=== PATIENT | female | born 1955 | race Caucasian/White ===

== ENCOUNTER → 2018-04-29 | Outpatient (CLI) | payer OTHER ==
--- NOTE | 2018-04-29 10:58 | MM ---
Reason for exam: screening (asymptomatic). Last mammogram was performed 5 years and 5 months ago. History: Family history of breast cancer in grandmother and breast cancer in sister at age 47. Physical Findings: A clinical breast exam by your physician is recommended on an annual basis and results should be correlated with mammographic findings. MG 3D Screening Mammo W/Cad Bilateral CC and MLO view(s) were taken. Prior study comparison: November 29, 2012, mammogram, performed at [facility]. November 17, 2011, mammogram, performed at [facility]. There are scattered fibroglandular densities. No significant changes when compared with prior studies. ASSESSMENT: Benign, BI-RAD 2 RECOMMENDATION: Routine screening mammogram of both breasts in 1 year.
== END ==
LOC: RADMAMWWP 06:50
PROVIDERS: ATTEND Family Medicine
DX: Z12.31 Encounter for screening mammogram for malignant neoplasm of breast (principal)
CPT/HCPCS: 77063; 77067

== ENCOUNTER → 2018-08-18 | Outpatient (CLI) | payer OTHER ==
--- NOTE | 2018-08-18 10:07 | CTL ---
EXAMINATION TYPE: CT Low Dose Lung DATE OF EXAM ORDERED: 08/18/2018 HISTORY: . Lung cancer screening CT DLP: 117.[address] CTDI: 3.6 mGy Automated exposure control for dose reduction was used. SCREENING VISIT: Initial COMPARISON: None TECHNIQUE: Low dose computed tomography scan was performed through the chest at 1 mm thick sections a nd reconstructed images in the coronal plane at [address] DIAGNOSTIC QUALITY: Satisfactory FINDINGS: LUNG NODULES: None. LUNGS: COPD: Severity: None Fibrosis: Severity: None Lymph nodes: None Other findings: None RIGHT PLEURAL SPACE: Effusion: None Calcification: None Thickening: None Pneumothorax: None LEFT PLEURAL SPACE: Effusion: None Calcification: None Thickening: None Pneumothorax: None HEART: Heart Size: Normal Coronary calcification: Mild Pericardial effusion: None OTHER FINDINGS: Upper abdomen: Normal Bony thorax: Normal Supraclavicular region: Normal Other: Ascending thoracic aorta at the level the main pulmonary artery is 3.3 cm. The main pulmonary artery the bifurcation is 2.6 cm. IMPRESSION: 1. No suspicious chest CT findings. FOLLOW UP CT CHEST RECOMMENDATION: Low dose screening CT per protocol, follow-up in one year CT LUNG RAD: Lung rad 1
== END | disposition home or self-care (01) ==
LOC: RADCTMAIN 07:04
PROVIDERS: ATTEND Family Medicine
DX: Z12.2 Encounter for screening for malignant neoplasm of respiratory organs (principal); Z87.891 Personal history of nicotine dependence

== ENCOUNTER 2018-09-09 09:18 | Day surgery (SDC) | payer OTHER ==
[2018-09-07 11:42] VITALS: BMI 37.1
[~2018-09-09 09:18] MED LIST: LACTATED RINGERS 1,000 ML IV SCH; LIDOCAINE 1% 20 ML VIAL (10MG/ML) FOR IV START INTRADERMA PRN
[2018-09-09 09:37] VITALS: RESP 16; TEMP 98.7
[2018-09-09] MEDS ORDERED: PROPOFOL 10 MG/ML 20 ML VIAL IV ONE (10:25)
--- NOTE | 2018-09-09 11:02 | P.PCN ---
Date of Procedure: 09/09/18 Description of Procedure: BRIEF HISTORY: 62-year-old female with a prior history of colon polyps who presents to the outpatient setting for colonoscopy. The patient reports last colonoscopy was approximately 6 years ago. She denies any change in bowel habits, abdominal pain, diarrhea, constipation or other any blood per rectum. She denies any family history of colon cancer. PROCEDURE PERFORMED: Colonoscopy. PREOPERATIVE DIAGNOSIS: High risk colon cancer screening, personal history of colon polyps. ESTIMATED BLOOD LOSS: Minimal. IV sedation per Anesthesia. PROCEDURE: After informed consent was obtained, the patient, was brought into the endoscopy unit. IV sedation was administered by Anesthesia under continuous monitoring. Digital rectal examination was normal. Initially the Olympus CF-190 flexible video colonoscope was then inserted in the rectum, gradually advanced into the cecum without any difficulty. The terminal ileum was intubated and appeared normal. Retroflexion in the cecum did not reveal any polyps. Careful examination was performed as the scope was gradually being withdrawn. Ileocecal valve and the appendiceal orifice were visualized and appeared normal. Prep was excellent. Mucosa of the cecum, ascending colon, transverse colon, descending colon, sigmoid colon, and rectum appeared normal. Mild scattered diverticulosis in the sigmoid colon. Mild internal hemorrhoids. Retroflexion was performed in the rectum and no lesions were seen. The patient tolerated the procedure well. IMPRESSION: Normal-appearing colon from rectum to cecum, and normal-appearing terminal ileum. Mild diverticulosis. Mild internal hemorrhoids. RECOMMENDATIONS: Findings of this examination were discussed with the patient interferon. Okay to resume high-fiber diet. Given prior history of colon polyps would recommend repeat screening colonoscopy in 5 years.
[2018-09-09 11:24] VITALS: BP 120/80; PULSE 63
== END 2018-09-09 11:36 | disposition home or self-care (01) ==
LOC: ORWHC2ENDO 09:18
PROVIDERS: ATTEND Internal Medicine
DX: Z12.11 Encounter for screening for malignant neoplasm of colon (principal); K57.90 Diverticulosis of intestine, part unspecified, without perforation or abscess without bleeding; K64.8 Other hemorrhoids; Z86.010 Personal history of colon polyps; Z90.710 Acquired absence of both cervix and uterus; I25.2 Old myocardial infarction; I10 Essential (primary) hypertension; E78.5 Hyperlipidemia, unspecified; Z87.891 Personal history of nicotine dependence; R06.02 Shortness of breath; Z79.82 Long term (current) use of aspirin; Z79.899 Other long term (current) drug therapy
CPT/HCPCS: J2704; G0105

== ENCOUNTER → 2019-05-24 | Outpatient (CLI) | payer OTHER ==
--- NOTE | 2019-05-24 08:50 | US ---
EXAMINATION TYPE: US duplex aorta DATE OF EXAM: 05/24/2019 COMPARISON: NONE CLINICAL HISTORY: Z82.49 FAM HX OF ISCHEMIC HEART DISEASE. Family history of AAA. No symptoms EXAM MEASUREMENTS: Abdominal Aorta: Proximal: 2.5 x 2.5 x 2.6 cm Mid: 1.9 x 2.0 x 2.3 cm Distal: 3.8 x 3.5 x 3.9 cm Bifurcation: RT: 1.0 x 1.5 x 1.4 cm LT: 1.5 x 1.2 x 1.3 cm Proximal portion of aorta is ectatic. Aneurysm distal aorta measuring 3.9 cm. Bilateral iliacs are me asuring upper limits of normal IMPRESSION: 1. Abdominal aortic fusiform prominence with a maximum AP diameter of 3.8 cm. This terminates bifurca tion.
== END | disposition home or self-care (01) ==
LOC: RADUSWWP 06:49
PROVIDERS: ATTEND Family Medicine
DX: I71.4 Abdominal aortic aneurysm, without rupture (principal); Z82.49 Family history of ischemic heart disease and other diseases of the circulatory system
CPT/HCPCS: 93979

== ENCOUNTER → 2021-09-12 | Outpatient (CLI) | payer OTHER ==
--- NOTE | 2021-09-13 09:55 | MR ---
EXAMINATION TYPE: MR brain wo/w con DATE OF EXAM: 09/12/2021 COMPARISON: Outside brain MRI November 18, 2019 HISTORY: Benign neoplasm of cerebral meninges TECHNIQUE: Multiplanar, multisequence images of the brain and brainstem is performed without and with IV contras t, utilizing 11 mL intravenous Gadavist . FINDINGS: Diffusion weighted images demonstrate no evidence of a recent infarct or other diffusion ab normality. There is no extra-axial fluid collection or significant white matter signal abnormality. The ventricular system and cisternal spaces are normal in size and appearance. The brain volume is age appropriate. Midline structures redemonstrate empty sella morphology. The craniocervical junction appears within normal limits. Stable 7 x 7 mm homogeneous enhancing left sided meningioma along the anterior interhe mispheric fissure axial image 20 and slightly large 10 x 7 mm meningioma posteriorly axial image 23 a long the interhemispheric fissure left occipital lobe. No new enhancing masses. The dural venous sinu ses remain patent. The visualized sinuses are clear and the globes are intact. IMPRESSION: There are 2 small stable midline meningiomas redemonstrated. No new or enlarging enhancin g masses identified.
== END | disposition home or self-care (01) ==
LOC: RADMRIMAIN 09:16
PROVIDERS: ATTEND Neurological Surgery
DX: D32.0 Benign neoplasm of cerebral meninges (principal)
CPT/HCPCS: 70553; A9585

== ENCOUNTER → 2022-07-24 | Outpatient (CLI) | payer MEDICARE ==
--- NOTE | 2022-07-24 08:26 | CTL ---
EXAMINATION TYPE: CT Low Dose Lung DATE OF EXAM: 07/24/2022 8:09 AM CLINICAL INDICATION:Female, 66 years old with history of Z87.891 Personal History Nicotine Dependence ; history of tobacco use. COMPARISON: 08/18/2018 TECHNIQUE: Multiple axial non-contrast scans were obtained from approximately the lung apices through the upper abdomen. Coronal and sagittal reformatted images were obtained. Low dose technique was uti lized. CT DLP: 129 mGycm, Automated exposure control for dose reduction was used. CT Contrast: Contrast used: None Oral contrast used: None FINDINGS: ======== Lack of intravenous contrast and low dose technique limits the evaluation of the vascular and soft ti ssue structures. LUNGS: No evidence of pulmonary fibrosis. No evidence of focal consolidation, pneumothorax or pleural effusion. Mild centrilobular emphysema changes. Nodules: RUL: None. RML: Intrafissural lymph node series 3 image 160. RLL: None. [place]: 4 mm pulmonary nodule series 5 image 23 LLL: Intrafissural lymph node series 3 image 152. AIRWAY: Patent and unremarkable. HEART: Size within normal limits. MEDIASTINUM: No gross evidence of adenopathy. VASCULATURE: No aortic aneurysm. Mild atherosclerosis of the arterial vasculature. MUSCULOSKELETAL: No acute osseous abnormalities SOFT TISSUES/LYMPH NODES: Unremarkable. LOWER NECK: No significant findings. UPPER ABDOMEN: No significant findings. IMPRESSION: 1. No clinically significant pulmonary nodules. 2. Mild emphysema. CT LUNG RAD AND CT CHEST RECOMMENDATION: Lung-Rad 2 Benign Appearance or Behavior: Continue annual sc reening with LDCT in 12 months. S Modifier (other clinically significant findings): None Recommend smoking cessation (if current smoker), or continuation of smoking cessation (if prior smoke r). Annual screening for lung cancer with low-dose computed tomography is recommended in adults ages 55 to 77 years who have a 30 pack-year smoking history and currently smoke or have quit within the pa st 15 years. Screening should be discontinued once a person has not smoked for 15 years or develops a health problem that substantially limits life expectancy or the ability or willingness to have curat shayy lung surgery. Lung rads 2021 [email or web address]
== END | disposition home or self-care (01) ==
LOC: RADCTMAIN 07:42
PROVIDERS: ATTEND Family Medicine
DX: Z12.2 Encounter for screening for malignant neoplasm of respiratory organs (principal); J43.2 Centrilobular emphysema; F17.200 Nicotine dependence, unspecified, uncomplicated
CPT/HCPCS: 71271

== ENCOUNTER → 2022-08-27 | Outpatient (CLI) | payer MEDICARE ==
--- NOTE | 2022-08-27 09:55 | US ---
EXAMINATION TYPE: US extremity nonvasc mass LT DATE OF EXAM: 08/27/2022 COMPARISON: NONE CLINICAL INDICATION: Female, 66 years old with history of R22.32 LOCALIZED SWELLING, MASS AND LUMP, L EFT UPP; Left proximal anterior upper arm palpable, feels soft to touch. Doctor noticed during an ex am. TECHNIQUE: Multiple grayscale and color Doppler ultrasound images of the left proximal upper arm at palpable area per obtained. FINDINGS/IMPRESSION: Area of concern scanned. Focal nonvascular hypoechoic area seen = 4.1 x 3.1 x 1.3 cm. This is heterogenous appearance. Contralateral image taken show no abnormality. Overall non vascular hypoechoic area is indeterminate. Further evaluation with MRI humerus with and without IV co ntrast is recommended.
== END | disposition home or self-care (01) ==
LOC: RADUSWWP 09:18
PROVIDERS: ATTEND Family Medicine
DX: R22.32 Localized swelling, mass and lump, left upper limb (principal)

== ENCOUNTER → 2022-10-22 | Outpatient (CLI) | payer MEDICARE ==
--- NOTE | 2022-10-23 11:45 | MR ---
EXAMINATION TYPE: MR humerus LT wo/w con DATE OF EXAM: 10/22/2022 COMPARISON: Ultrasound 08/27/2022 HISTORY: Lump on lateral proximal humerus. CONTRAST: Standard multiplanar, multisequence MRI departmental protocol images were obtained without contrast a nd with 11 mL intravenous Gadavist gadolinium contrast. FINDINGS: Over the area of palpable abnormality of the left upper extremity adjacent to the lateral lumbar shu stephany there is a fat measuring 3.6 x 2.2 x 4.9 cm mass. There is fat suppression. There is no evidence of enhancement. Minimal internal stranding signal. Osseous structures maintain normal signal pattern with no evidence of marrow edema. There is no perio steal reaction. No acute fracture or dislocation biceps tendon grossly contained within the bicipital groove. IMPRESSION: 3.6 x 2.2 x 4.9 cm mass is most compatible with a benign lipoma. If there is been interval growth or the probable benign lipoma has been demonstrating growth over time then a atypical lipoma or less lik rohini remote low-grade liposarcoma would be in the differential diagnosis.
== END | disposition home or self-care (01) ==
LOC: RADMRIMAIN 08:18
PROVIDERS: ATTEND Family Medicine
DX: M89.8X4 Other specified disorders of bone, hand (principal)
CPT/HCPCS: 73220; A9585

== ENCOUNTER → 2022-12-04 | Outpatient (CLI) | payer MEDICARE ==
[2022-12-04 14:18] LABS: African American GFR (CKD) >90 (>60 ml/min/1.73 sqM); Blood Urea Nitrogen 21 mg/dL (7-17); Non-African American GFR(CKD) >90 (>60 ml/min/1.73 sqM)
--- NOTE | 2022-12-04 15:55 | CT ---
EXAMINATION TYPE: CT angio abdomen pelvis CT DLP: 1823.9 mGycm, Automated exposure control for dose reduction was used. DATE OF EXAM: 12/04/2022 3:29 PM COMPARISON: . None CLINICAL INDICATION:Female, 66 years old with history of I71.43 INFRARENAL ABDOMINAL AORTIC ANEURYSM, abd aortic aneurysm TECHNIQUE: Multiple thin slice sub-millimeter images were obtained after administration of contrast. 3-D reconstructed images and maximum intensity projection images were obtained. CT angio abdomen pel vis CT Contrast: Contrast used:100 mL of Isovue 370 with IV Contrast, Oral contrast used: without Oral Contrast None FINDINGS: CTA Abdomen and pelvis: No evidence for intramural hematoma on noncontrast imaging. There is infraren al abdominal aneurysm fusiform dilation up to 5.0 x 4.9 cm and extending approximately 6.8 cm in caud ocranial length.. There is minimal mural thrombus around the aneurysm. Atherosclerotic plaquing is i dentified within the abdominal aorta. The origins of the superior mesenteric artery, renal arteries, inferior mesenteric artery, and celiac axis are patent. The iliac vessels are normal in morphology there is atherosclerotic plaque is predominantly calcified involving the external iliac and common il iac arteries. No significant luminal narrowing of the iliac systems bilaterally. LOWER CHEST: No evidence of focal consolidation, pneumothorax or pleural effusion. Atelectasis change s in the lung bases on the right. LIVER: Unremarkable GALLBLADDER AND BILE DUCTS: Unremarkable. PANCREAS: Unremarkable. SPLEEN: Unremarkable. ADRENAL GLANDS: Unremarkable. KIDNEYS AND URETERS: No evidence of hydronephrosis or renal calculus. The ureters are unremarkable. PELVIS BLADDER: Unremarkable REPRODUCTIVE: Unremarkable. ABDOMEN & PELVIS STOMACH AND BOWEL: No evidence of bowel obstruction. Scattered colonic diverticulosis. PERITONEUM: No evidence of pneumoperitoneum or free fluid. VASCULATURE: No evidence of aortic aneurysm. MUSCULOSKELETAL: Mild disc degeneration changes are present throughout the thoracolumbar spine. LYMPH NODES: Abnormal soft tissue density which is lobulated in the mesentery adjacent to the sigmoid colon measuring 3.3 x 2.2 cm. SOFT TISSUE/ABDOMINAL WALL: Fat-containing inguinal hernia. IMPRESSION 1. Infrarenal fusiform dilation up to 5.0 cm. Vascular surgical consultation recommended. 2. Abnormal soft tissue within the mesentery measuring 3.2 x 2.3 cm adjacent to the sigmoid colon. E tiology is unclear could relate to prior surgical change versus lymphadenopathy from neoplastic proce ss. Further workup and comparisons with any priors at outside institution may be of benefit. 3. No evidence of vascular occlusion. 4. Atherosclerotic disease involving abdominal aorta and lower extremity vasculature. 5. Colonic diverticulosis 6. Left fat-containing inguinal hernia.
== END | disposition home or self-care (01) ==
LOC: RADCTMAIN 13:32
PROVIDERS: ATTEND Surgery
DX: I71.43 Infrarenal abdominal aortic aneurysm, without rupture (principal); K57.30 Diverticulosis of large intestine without perforation or abscess without bleeding; K40.90 Unilateral inguinal hernia, without obstruction or gangrene, not specified as recurrent; I70.0 Atherosclerosis of aorta
CPT/HCPCS: 82565; 84520; 36415; 74174; Q9967

== ENCOUNTER 2023-01-26 10:12 | Inpatient (IN) | payer MEDICARE ==
[~2023-01-26 10:12] MED LIST changes: +DEXAMETHASONE SOD PHOSPHATE 4 MG/ML 1 ML VIAL IV ONE; -LACTATED RINGERS 1,000 ML IV SCH; -LIDOCAINE 1% 20 ML VIAL (10MG/ML) FOR IV START INTRADERMA PRN; +ONDANSETRON 4 MG/2 ML VIAL IVP ONE; +SODIUM CHLORIDE 0.9% 1,000 ML in EMPTY BAG 1 BAG IV ONE; +ceFAZolin 1 GM in SODIUM CHLORIDE 0.9% 250 ML IRRIGATION PRN
[2023-01-26 11:01] LABS: Basophils % (A) 0 %; Eosinophils # (A) 0.1 k/uL (0-0.7); Eosinophils % (A) 1 %; HCT 50.7 % (34.0-46.0); HGB 17.5 gm/dL (11.4-16.0); Lymphocytes # (A) 1.4 k/uL (1.0-4.8); Lymphocytes % (A) 15 %; MCH 30.9 pg (25.0-35.0); MCHC 34.5 g/dL (31.0-37.0); MCV 89.7 fL (80.0-100.0); Monocytes # (A) 0.4 k/uL (0-1.0); Monocytes % (A) 4 %; Neutrophils % (A) 78 %; Platelet Count 382 k/uL (150-450); RBC 5.66 m/uL (3.80-5.40)
[2023-01-26 11:20] LABS: African American GFR (CKD) >90 (>60 ml/min/1.73 sqM); Anion Gap 10 mmol/L; Blood Urea Nitrogen 15 mg/dL (7-17); Calcium 9.7 mg/dL (8.4-10.2); Carbon Dioxide 27 mmol/L (22-30); Chloride 103 mmol/L (98-107); Glucose 101 mg/dL (74-99); Non-African American GFR(CKD) >90 (>60 ml/min/1.73 sqM); Potassium 4.3 mmol/L (3.5-5.1); Sodium 140 mmol/L (137-145)
[2023-01-26] MEDS ORDERED: SUCCINYLCHOLINE CHLORIDE 200 MG/10 ML VIAL IV ONE (12:27)
[2023-01-26] MEDS ORDERED: fentaNYL (PF) 50 MCG/ML 2 ML AMP ONE (12:27)
[2023-01-26] MEDS ORDERED: MIDAZOLAM 2 MG/2 ML VIAL ONE (12:27)
[2023-01-26] MEDS ORDERED: PROPOFOL 10 MG/ML 20 ML VIAL IV ONE (12:27)
[2023-01-26] MEDS ORDERED: LIDOCAINE 1% INJ 10MG/ML (20 ML MDV) ONE (12:27)
[2023-01-26] MEDS ORDERED: PHENYLEPHRINE 10 MG/ML 5 ML VIAL ONE (12:27)
[2023-01-26] MEDS ORDERED: NEOSTIGMINE 1 MG/ML 10 ML VIAL ONE (12:27)
[2023-01-26] MEDS ORDERED: PROTAMINE SULFATE 10 MG/ML 5 ML VIAL ONE (12:27)
[2023-01-26] MEDS ORDERED: GLYCOPYRROLATE 0.2 MG/ML 2 ML VIAL ONE (12:27)
[2023-01-26] MEDS ORDERED: ePHEDrine 50 MG/ML 1 ML VIAL ONE (12:27)
[2023-01-26] MEDS ORDERED: HEPARIN SODIUM,PORCINE 10,000 UNIT/ML 1 ML VIAL ONE (12:27)
[2023-01-26] MEDS ORDERED: ROCURONIUM 10 MG/ML (5 ML VIAL) IV ONE (12:27)
[2023-01-26] MEDS ORDERED: IOPAMIDOL-250 100ML BTL INTRAARTER ONE (14:23)
[2023-01-26] MEDS ORDERED: LACTATED RINGERS 1,000 ML IV ONE (14:47)
[2023-01-26] MEDS ORDERED: NALOXONE 0.4 MG/ML 1 ML VIAL IVP PRN (14:48)
--- NOTE | 2023-01-26 14:56 | IR ---
EXAMINATION TYPE: IR stent intravas non coronary DATE OF EXAM: 01/26/2023 COMPARISON: NONE HISTORY: Fluoroscopy time. Fluoroscopy was provided to the referring clinician.
[2023-01-26 15:27] LABS: Basophils % (A) 0 %; Eosinophils # (A) 0.2 k/uL (0-0.7); Eosinophils % (A) 2 %; HCT 44.9 % (34.0-46.0); HGB 15.5 gm/dL (11.4-16.0); Lymphocytes # (A) 1.4 k/uL (1.0-4.8); Lymphocytes % (A) 14 %; MCH 30.9 pg (25.0-35.0); MCHC 34.5 g/dL (31.0-37.0); MCV 89.6 fL (80.0-100.0); Monocytes # (A) 0.5 k/uL (0-1.0); Monocytes % (A) 5 %; Neutrophils # (A) 7.5 k/uL (1.3-7.7); Neutrophils % (A) 77 %; Platelet Count 334 k/uL (150-450); RBC 5.01 m/uL (3.80-5.40); WBC 9.8 k/uL (3.8-10.6)
[2023-01-26 15:35] LABS: Glucose,Whole Blood 102 mg/dL (70-110)
[2023-01-26] MEDS: HYDROmorphone 0.5 MG/0.5 ML SYRINGE IVP PRN ×2 (15:37→16:07)
[2023-01-26 15:48] LABS: African American GFR (CKD) >90 (>60 ml/min/1.73 sqM); Anion Gap 10 mmol/L; Blood Urea Nitrogen 13 mg/dL (7-17); Calcium 8.4 mg/dL (8.4-10.2); Carbon Dioxide 25 mmol/L (22-30); Chloride 105 mmol/L (98-107); Glucose 99 mg/dL (74-99); Non-African American GFR(CKD) >90 (>60 ml/min/1.73 sqM); Potassium 3.8 mmol/L (3.5-5.1); Sodium 140 mmol/L (137-145)
--- NOTE | 2023-01-26 15:57 | P.OP ---
Date of Procedure: 01/26/23 Preoperative Diagnosis: 5.2 cm infrarenal abdominal aortic aneurysm. Postoperative Diagnosis: Same. Procedure(s) Performed: 1: Percutaneous ultrasound-guided cannulation of bilateral femoral arteries with placement of a closure device bilaterally. 2: Placement of aortoiliac bifurcated stent graft, ([place] Excluder). Anesthesia: JINAA Surgeon: Ed Dominguez Estimated Blood Loss (ml): 150 Urine output (ml): 550 Pathology: none sent Condition: stable Disposition: PACU Indications for Procedure: Patient is a 67 show female who has been followed in reference to a known infrarenal abdominal aortic aneurysm. This aneurysm recently was measured at 5.2 cm in greatest transverse diameter. She was evaluated for both stent graft and open repair. Patient was deemed a candidate for stent graft repair as well as an open repair and the patient was to proceed with stent graft repair. The procedure, risk and benefits were discussed. All questions were answered to patient's satisfaction. Description of procedure and findings: Patient was brought to special procedure suite. She is placed in the supine position and administered general endotracheal anesthesia delivered by the department anesthesiology. Patient received intravenously administered prophylactic antibiotics in the perioperative phase. Wallace catheter was placed to gravity drainage. The lower thorax, abdominal, pelvic and anterior thigh areas were sterilely prepped and draped in usual manner. Utilizing ultrasound the right common femoral artery was identified. Micropuncture needle was utilized to cannulate the artery with ultrasound guidance. Micropuncture wire was advanced and the needle was withdrawn. Micropuncture sheath and dilator advanced over the guidewire. The guidewire and dilator were withdrawn and a 0.035 inch guidewire was advanced through the micropuncture sheath. The sheath was then withdrawn and a 6-Bhut[place] sheath was advanced over the guidewire. Guidewire was withdrawn and a glide wire was then advanced into the abdominal aortic segment. Two Pro Buena devices were then deployed in the 6-[place]hutanese sheath was replaced. Similar procedures performed on the contralateral side. Lunderquist wire was advanced from the right femoral sheath and positioned at the aortic knob. Glidewire and pigtail catheter combination were advanced from the left and positioned at the L1 interspace. A [place] excluder endoprosthesis measuring 26 mm x 14.5 millimeters x 12 cm was selected. A 16-Bhutanese sheath was exchanged for the 6-Bhutanese sheath in the right groin. The patient was systemically heparinized and ACT is were drawn assuring adequate anticoagulation. Angiogram was performed and the renal artery orifices were noted. The endoprosthesis was advanced through the sheath and subsequently deployed just below the main renal artery bilaterally. From the left the pigtail catheter was withdrawn and a angled glide catheter and guidewire combinations were utilized to cannulate the gait. Once cannulated the Glidewire and catheter were advanced into the suprarenal segment. The Glidewire was exchanged for a Lunderquist wire. Pigtail catheter was readvanced over the Lunderquist. Left iliac angiogram was performed with notation of the bifurcation of the common into the internal and external segments. A [place] excluder contralateral limb measuring 14.5 mm x 12 cm was selected and deployed appropriately. From the right side the pigtail catheter was readvanced and a right iliac angiogram was performed noting the bifurcation. A [place] excluder ipsilateral limb was selected measuring 14.5 mm x 10 cm and deployed. Subsequently a conforming balloon was applied to the proximal and distal landing points as well as endoprosthetic overlap. There appeared to be less than full expansion of the right iliac limb and an area of stenosis of the proximal common iliac artery. As such utilizing the kissing balloon technique 12 mm balloon dilation catheters were utilized to balloon this segment. Subsequently completion angiogram was performed which demonstrated no evidence of a type I or type III endoleak. There appeared to be a small type II endoleak from a lumbar artery on the left. It was anticipated that this will would be able to seal on its own. With the above findings noted the sheath on the right was removed and the puncture wound closed with the previously placed Pro glide sutures. Once adequate hemostasis was achieved a similar procedure was performed on the contralateral side. The patient did receive 25 mg of protamine to reverse the heparin effect. Patient tolerated procedure well. Proper dressings were applied to both ingu inal areas. Patient had palpable posterior tibial pulse bilaterally and a dorsalis pedis pulse present on the left, consistent with preoperative examination. Total fluoroscopy time: 12.7 minutes. Total contrast volume: 75 ML's of Isovue. Description of Procedure: Please see above
[2023-01-26] MEDS: LACTATED RINGERS 1,000 ML IV SCH (17:21)
[2023-01-26] MEDS ORDERED: ALBUTEROL NEBULIZED 2.5 MG/3 ML INHALATION PRN (19:38)
[2023-01-26] MEDS: ONDANSETRON 4 MG/2 ML VIAL IVP PRN (20:00)
[2023-01-26] MEDS ORDERED: ATORVASTATIN 10 MG TAB PO SCH (21:00)
[2023-01-26] MEDS: SYMBICORT 80-4.5 MCG INHALER INHALATION SCH (21:08)
[2023-01-26] MEDS: IPRATROPIUM 0.5 MG/2.5 ML NEBU INHALATION SCH (21:09)
[2023-01-27 00:49] VITALS: RESP 16
[2023-01-27] MEDS: ONDANSETRON 4 MG/2 ML VIAL IVP PRN (03:05)
[2023-01-27] MEDS: LACTATED RINGERS 1,000 ML IV SCH (06:30)
[2023-01-27 08:11] VITALS: PULSE 71
[2023-01-27] MEDS: IPRATROPIUM 0.5 MG/2.5 ML NEBU INHALATION SCH ×2 (08:23→11:55)
[2023-01-27] MEDS: SYMBICORT 80-4.5 MCG INHALER INHALATION SCH (08:24)
[2023-01-27 08:37] LABS: HCT 45.3 % (34.0-46.0); HGB 15.3 gm/dL (11.4-16.0); MCH 31.2 pg (25.0-35.0); MCHC 33.7 g/dL (31.0-37.0); MCV 92.4 fL (80.0-100.0); Platelet Count 319 k/uL (150-450); RDW 12.1 % (11.5-15.5); WBC 12.4 k/uL (3.8-10.6)
[2023-01-27 08:50] LABS: ALT 20 U/L (4-34); AST 29 U/L (14-36); African American GFR (CKD) >90 (>60 ml/min/1.73 sqM); Albumin 4.1 g/dL (3.5-5.0); Alkaline Phosphatase 74 U/L (38-126); Anion Gap 14 mmol/L; Blood Urea Nitrogen 13 mg/dL (7-17); Carbon Dioxide 26 mmol/L (22-30); Chloride 101 mmol/L (98-107); Glucose 109 mg/dL (74-99); Magnesium 1.8 mg/dL (1.6-2.3); Non-African American GFR(CKD) >90 (>60 ml/min/1.73 sqM); Potassium 3.8 mmol/L (3.5-5.1); Sodium 141 mmol/L (137-145); Total Bilirubin 1.2 mg/dL (0.2-1.3); Total Protein 6.9 g/dL (6.3-8.2)
[2023-01-27] MEDS ORDERED: CALCIUM CARB-VIT D 500 MG-5 MCG TAB PO SCH (09:00)
[2023-01-27] MEDS ORDERED: LISINOPRIL-HCTZ 10-12.5 MG 1 EACH TAB PO SCH (09:00)
[2023-01-27] MEDS ORDERED: NON FORMULARY DRUG (Rosuvastatin Calcium [Crestor] 5 MG Tablet) PO SCH (09:00)
[2023-01-27] MEDS ORDERED: CLOPIDOGREL 75 MG TAB PO SCH (10:15)
--- NOTE | 2023-01-27 10:47 | P.DS ---
Providers Date of admission: 01/26/23 10:12 Expected date of discharge: 01/27/23 Attending physician: Ed Dominguez DO Consults: 01/26/23 06:03 Consult to Anesthesia Routine Consulting Provider: Anesthesia,Services Consult Reason/Comments: General anesthesia for Aortic Stent procedure 01/27/23 07:20 Consult Physician Routine Consulting Provider: Alona Grimaldo Consult Reason/Comments: medical mgt Do you want consulting provider notified?: Already Contacted Primary care physician: [facility] Course: 67-year-old female with a past medical history including hypertension, hyperlipidemia former smoker now currently taping, COPD, venous insufficiency and 5.2 cm infrarenal abdominal aortic aneurysm who presented yesterday for elective repair of abdominal aortic aneurysm. She is postop day #1 for percutaneous aorto iliac bifurcated stent graft placement. She had bilateral femoral arteries cannulated with placement of closure device bilaterally. She was seen and examined this morning sitting up at the site of the bed. She had been up and ambulating. She denies any shortness of breath, chest pain, abdominal pain, nausea or vomiting. She is afebrile. No reported bleeding from her groins. No pain in her lower extremities. She is tolerating her diet. She was requiring 2-4 L of nasal cannula throughout the night maintaining a 92-94% oxygen. Patient denies wearing oxygen at home. Will continue to have her ambulate and evaluated for possible home O2. Will begin Plavix 75 mg daily. First dose today. Plan for discharge this afternoon. Patient will require home oxygen therapy. Primary medical team has set this up for the patient upon discharge. Patient may be discharged home today if home oxygen is set up and available per patient today. Exam General appearance: The patient is alert, oriented, appears in no acute distress. HET: Head is normocephalic and atraumatic. Pupils are equal and reactive. Neck: Supple. Heart: Regular. Lungs: Equal expansion, normal respiratory effort. Abdomen: Soft, nontender, nondistended. Extremities: Normal skin color and turgor. Bilateral femoral groin access site without any bleeding or noted hematoma. Bilateral palpable DP pulses. Neurological: No focal deficits. Strength and sensation are grossly intact. Assessment 1. Postop day #1 for percutaneous aorto iliac bifurcated stent graft placement with bilateral femoral closure device 2. 5.2 cm infrarenal abdominal aortic aneurysm 3. COPD, requiring home oxygen therapy 4. Hypertension 5. Hyperlipidemia 6. Former smoker, now currently vaping Plan 1. Nursing to monitor oxygen while ambulating determine if home oxygen as needed 2. Will start patient on Plavix 75 mg daily 3. Discussed with patient importance of smoking cessation, vaping cessation. Patient offered nicotine patch however she declined 4. Plan for discharge home this afternoon 5. Discharge instructions reviewed with patient. See discharge summary. 6. Patient to follow-up with Dr. Portillo in 1-2 weeks. The impression and plan of care has been dictated as directed. I performed a history and examination of this patient, discussed the same with the dictator. I agree with the dictator's note ,documented as a scribe. Any additional findings or plans will be noted. Procedures: 1: Percutaneous ultrasound-guided cannulation of bilateral femoral arteries with placement of a closure device bilaterally. 2: Placement of aortoiliac bifurcated stent graft, ([place] Excluder). Patient Condition at Discharge: Stable Plan - Discharge Summary Discharge Rx Participant: No New Discharge Prescriptions: New RX: Clopidogrel [Plavix] 75 mg PO DAILY #30 tab Continue RX: Aspirin [Adult Low Dose Aspirin EC] 81 mg PO DAILY RX: Lisinopril-Hctz 10-12.5 mg [Zestoretic 10-12.5] 1 tab PO DAILY RX: Rosuvastatin Calcium [Crestor] 5 mg PO DAILY RX: Calcium Carbonate/Vitamin D3 [Calcium 600-Vit D3 20 Mcg (800 Iu)] 1 each PO DAILY RX: Albuterol Sulfate [Proair Hfa] 1 - 2 puff INHALATION Q6HR PRN PRN Reason: Shortness Of Breath Trelegy(Unk) 1 puff INHALATION DIRECTED Discharge Medication List RX: Albuterol Sulfate [Proair Hfa] 1 - 2 puff INHALATION Q6HR PRN 09/07/18 [History] RX: Aspirin [Adult Low Dose Aspirin EC] 81 mg PO DAILY 09/07/18 [History] RX: Calcium Carbonate/Vitamin D3 [Calcium 600-Vit D3 20 Mcg (800 Iu)] 1 each PO DAILY 09/07/18 [History] RX: Lisinopril-Hctz 10-12.5 mg [Zestoretic 10-12.5] 1 tab PO DAILY 09/07/18 [History] RX: Rosuvastatin Calcium [Crestor] 5 mg PO DAILY 09/07/18 [History] Trelegy(Unk) 1 puff INHALATION DIRECTED 01/22/23 [History] RX: Clopidogrel [Plavix] 75 mg PO DAILY #30 tab 01/27/23 [Rx] Follow up Appointment(s)/Referral(s): Ed Dominguez DO [Doctor of Osteopathic Medicine] - 1 Week Brown Rodriguze MD [Primary Care Provider] - 1 Week Activity/Diet/Wound Care/Special Instructions: No driving until cleared by vascular surgeon Avoid heavy lifting greater than 10 lbs , pushing, pulling, straining, flights of stairs for 7 days ok to shower tomorrow but no baths, pools, soaking in tubs for 2 weeks to avoid risk of infection. signs of infection ie: fever, rash, drainage from puncture site, swelling contact doctor or return to ER immediately. Heavy bleeding from puncture site apply firm direct pressure and return to ER. Do not attempt to drive self. low sodium/low fat diet Recommend Smoking/vaping cessation Discharge Disposition: HOME SELF-CARE
[2023-01-27 11:56] VITALS: BP 149/75; TEMP 97.8
--- NOTE | 2023-01-27 12:16 | P.CONS ---
History of Present Illness - Reason for Consult Consult date: 01/27/23 Medical Management Requesting physician: Ed Dominguez - History of Present Illness History of Presenting Illness: Patient is a Patient is a very pleasant 67-year-old female with a past medical history of COPD/emphysema, hypertension, hyperlipidemia, and abdominal aortic aneurysm. She is currently admitted to vascular surgery team status post a percutaneous ultrasound-guided cannulation of bilateral femoral arteries with placement of closure device and aortoiliac bifurcated stent graft secondary to 5.2 cm infrarenal abdominal aortic aneurysm. Surgical procedure was performed by Dr. Dominguez on 01/26/23. On the morning of 01/27/23 with a notified of consultation for medical management throughout remainder of pts hospitalization and medical clearance for discharge. Patient seen and fully evaluated at bedside. Patient appears to be doing well. She does have exertional dyspnea. Ambulatory home oxygen evaluation was completed. Patient 94% on room air at rest and quickly desats down to 84% on room air with minimal exertion/ambulation. Patient was found to require 4 L O2 via nasal cannula to maintain SpO2 of 92% with ambulation/exertion and was 97% on 4 L O2 at rest. Discussed these findings with residential case manager/social work as patient will require home oxygen for her advanced COPD/emphysema. Review of systems: Pertinent positives and negatives as discussed in HPI, a complete review of systems was performed and all other systems are negative. Physical exam: Vital signs reviewed and stable. General: Nontoxic, no distress and appears stated age. Derm: Skin warm and dry, normal coloration for ethnicity. Head: Atraumatic, normocephalic and symmetric. Eyes: EOMs intact, no lid lag, and anicteric sclera Mouth: no lip lesions, mucus membranes moist Cardiovascular: regular rate and rhythm with normal S1S2, systolic murmur, positive posterior tibial pulses bilaterally, and cap refill < 2 seconds. No hematoma, bleeding, drainage or erythema at femoral insertion sites. Lungs: Respirations even, regular, and unlabored on room air. Lungs CTA bilaterally, no rhonchi, no rales, no wheezing, and no accessory muscle usage. Abdominal: soft, nontender to palpation, no guarding, no appreciable organomegaly Ext: ROM intact. No gross muscle atrophy, no edema, no contractures Neuro: Speech clear, face symmetrical and CN II-XII grossly intact with no noted focal neuro deficits Psych: Alert and oriented to person, place, time, and situation. Appropriate and pleasant affect. Assessment and Plan of Care: Acute on chronic respiratory failure with hypoxia COPD/emphysema -Patient with exertional dyspnea and hypoxia with ambulation/exertion. -Ambulatory home oxygen evaluation was completed. Patient 94% on room air at rest and quickly desats down to 84% on room air with minimal exertion/ambulation. -Patient was found to require 4 L O2 via nasal cannula to maintain SpO2 of 92% with ambulation/exertion and was 97% on 4 L O2 at rest. -Discussed these findings with residential case manager/social work and vascular surgery team, patient will require home oxygen for her advanced COPD/emphysema and arrangements have been made. Hypertension Hyperlipidemia -Patient to continue daily medication regimen with atorvastatin 10 mg nightly and lisinopril/hydrochlorothiazide 10/12.5 mg daily. Abdominal aortic aneurysm status post percutaneous ultrasound-guided cannulation of bilateral femoral arteries with placement of closure device and aortoiliac bifurcated stent graft secondary to 5.2 cm infrarenal abdominal aortic aneurysm. -Management per primary admitting vascular surgery team. -Bilateral Femoral access sites were evaluated showing no signs of hematoma, bleeding, drainage, or surrounding erythema. -Continue Plavix 75 mg daily. Data and imaging reviewed: No new imaging available for review at this time. Postoperative Labs completed and reviewed. Postoperative labs showing mild leukocytosis with WBC count of 12.4 and stable hemoglobin of 15.3. BMP was unremarkable and liver profile also unremarkable. Magnesium normal findings at 1.8. Vital signs reviewed. Blood pressure 164/88, heart rate 71, respiratory rate 16, temp 97.5F, and SpO2 of 94% on 2 L O2 via nasal cannula. Medically, patient is optimized for discharge at this time, patient will require discharged home on home oxygen. Will also discharge patient home with the Ventolin/albuterol rescue inhaler and recommend patient following up with kettle skimmer in 1-2 weeks post discharge. Patient was educated and instructed that she will require to wear supplemental oxygen at all times including while bathing and sleeping. Thank you for allowing us to participate in the care of this pleasant patient. Do not hesitate to contact us with questions. Someone can be reached from the [facility] hospitalist group all hours of the day at [phone] or via perfect serve. Patient was seen independently by Nurse Practitioner. This document was prepared using [employer] dictation software. Please allow for errors in pneumatic tester mechanic while rare they do occur. Adan العلي NP rendered care for this patient independently, reviewed the findings and plan as documented in the note above. I did not physically speak with or examine the patient on this date. Past Medical History Past Medical History: COPD, Hyperlipidemia, Hypertension, Myocardial Infarction ([place]), Vascular Disorder Additional Past Medical History / Comment(s): OCCASIONAL SOB., COMPRESSED DISCS WITH LOWER BACK PAIN, STATES NON CANCEROUS SPOTS ON HER BRAIN., HX OF COLON POLYPS. abdominal anuerysm Last Myocardial Infarction Date:: 2005 History of Any Multi-Drug Resistant Organisms: None Reported Past Surgical History: Hysterectomy Additional Past Surgical History / Comment(s): MASS THIGH (1997), VARICOSE VEIN S., COLONOSCOPY Past Anesthesia/Blood Transfusion Reactions: No Reported Reaction Additional Past Anesthesia/Blood Transfusion Reaction / Comm: SWINGING HER ARMS WHEN SHE WOKE UP. Smoking Status: Former smoker, Vaper - Past Family History Sister(s) Family Medical History: Cancer Additional Family Medical History / Comment(s): BREAST CANCER Medications and Allergies Home Medications Medication Instructions Recorded Confirmed Type Albuterol Sulfate [Proair Hfa] 1 - 2 puff INHALATION Q6HR PRN 09/07/18 01/26/23 History Aspirin [Adult Low Dose Aspirin EC] 81 mg PO DAILY 09/07/18 01/26/23 History Calcium Carbonate/Vitamin D3 1 each PO DAILY 09/07/18 01/26/23 History [Calcium 600-Vit D3 20 Mcg (800 Iu)] Lisinopril-Hctz 10-12.5 mg 1 tab PO DAILY 09/07/18 01/26/23 History [Zestoretic 10-12.5] Rosuvastatin Calcium [Crestor] 5 mg PO DAILY 09/07/18 01/26/23 History Trelegy(Unk) 1 puff INHALATION DIRECTED 01/22/23 01/26/23 History Albuterol Inhaler [Ventolin Hfa 2 puff INHALATION QID #8 gm 01/27/23 Rx Inhaler] Clopidogrel [Plavix] 75 mg PO DAILY #30 tab 01/27/23 Rx Allergies Allergy/AdvReac Type Severity Reaction Status Date / Time No Known Allergies Allergy Verified 01/26/23 10:39 Physical Exam Osteopathic Statement: *. No significant issues noted on an osteopathic s tructural exam other than those noted in the History and Physical/Consult. Vitals: Vital Signs Temp Pulse Pulse Pulse Resp BP Pulse Ox 01/27/23 03:14 98.4 F 65 16 115/68 92 L 01/27/23 02:00 65 16 01/27/23 00:40 64 16 131/68 93 L 01/26/23 19:56 98.0 F 86 20 166/93 91 L 01/26/23 16:45 60 16 127/61 93 L 01/26/23 16:15 63 16 157/66 93 L 01/26/23 16:00 57 L 16 158/67 96 01/26/23 15:45 58 L 16 155/65 92 L 01/26/23 15:30 56 L 16 149/61 96 01/26/23 15:15 61 16 151/67 94 L 01/26/23 15:01 74 16 135/55 95 01/26/23 14:45 97.2 F L 82 16 109/55 94 L 01/26/23 10:49 97.4 F L 88 18 149/88 91 L Intake and Output 01/26/23 01/27/23 01/27/23 22:59 06:59 14:59 Output Total 375 350 Balance -375 -350 Output: Urine 375 350 Uretheral (Wallace) 375 Other: Voiding Method Toilet Results CBC & Chem 7: 01/27/23 08:12 01/27/23 08:12 Labs: Abnormal Lab Results - Last 24 Hours (Table) 01/26/23 01/26/23 Range/Units 10:10 10:10 RBC 5.66 H (3.80-5.40) m/uL Hgb 17.5 H (11.4-16.0) gm/dL Hct 50.7 H (34.0-46.0) % Glucose 101 H (74-99) mg/dL
== END 2023-01-27 13:49 | disposition home or self-care (01) | DRG 268 ==
LOC: 2ORMAIN 10:12 → 3SCARD 17:07
PROVIDERS: ADMIT Surgery; ATTEND Surgery
PROC: 04V03DZ Restriction of Abdominal Aorta with Intraluminal Device, Percutaneous Approach (ICD-10-PCS; principal; 2023-01-26 12:00)
DX: I71.43 Infrarenal abdominal aortic aneurysm, without rupture (principal); J96.21 Acute and chronic respiratory failure with hypoxia; E78.5 Hyperlipidemia, unspecified; I10 Essential (primary) hypertension; J43.9 Emphysema, unspecified; I83.11 Varicose veins of right lower extremity with inflammation; I83.12 Varicose veins of left lower extremity with inflammation; F17.290 Nicotine dependence, other tobacco product, uncomplicated; I25.2 Old myocardial infarction; Z79.02 Long term (current) use of antithrombotics/antiplatelets; Z79.82 Long term (current) use of aspirin; Z79.899 Other long term (current) drug therapy; Z87.19 Personal history of other diseases of the digestive system; Z71.6 Tobacco abuse counseling
CPT/HCPCS: 34705; 80048; 80053; 83735; 85025; 85027; 86850; 86900; 86901; 94640

== ENCOUNTER → 2023-02-13 | Outpatient (CLI) | payer MEDICARE ==
[2023-02-13 08:30] LABS: African American GFR (CKD) 86 (>60 ml/min/1.73 sqM); Blood Urea Nitrogen 18 mg/dL (7-17); Non-African American GFR(CKD) 75 (>60 ml/min/1.73 sqM)
--- NOTE | 2023-02-13 11:41 | CT ---
EXAMINATION TYPE: CT angio abdomen pelvis DATE OF EXAM: 02/13/2023 COMPARISON: 12/04/2022 HISTORY: 67-year-old female Z95.820 PERIPHERAL VASCULAR ANGIOPLASTY, aortic stent TECHNIQUE: Contiguous axial scanning of the abdomen and pelvis before and after administration of 100 ml Isovue 370 IV contrast. Delayed images through the stent graft and coronal/sagittal reconstructi ons performed. CT DLP: 2788.5 mGycm Automated exposure control for dose reduction was used. FINDINGS: Heart normal size without pericardial effusion. Some patchy lower lung opacities probably represent c ombination of atelectasis and some scarring. No pleural effusion. Liver mildly enlarged at 18.0 cm there are no focal lesion is seen. Portal venous system is patent. N o biliary ductal dilatation. Gallbladder, adrenal glands, spleen, and pancreas within normal limits. Some delay in excretion of contrast from the kidneys on the delayed scan. Correlate with BUN/creatini ne to exclude acute kidney injury. No dilated small bowel, free fluid, or free air. No mesenteric or retroperitoneal adenopathy. Moderate stool within the right side of the colon. Sigmoid diverticulosis. No pericolonic inflammator y change. Bladder partially distended. Uterus not seen. Ovaries not well delineated from adjacent bowel loops n o abnormal fluid collection in the pelvis or pelvic lymphadenopathy. Vasculature: Celiac axis is patent. Mild to moderate atherosclerotic narrowing at the origin of the SMA is unchanged. Maldonado bilateral renal arteries. Interval placement of aortobiiliac endovascular stent graft. Jena sac measures 5.4 x 5.2 cm versus 5.0 x 4.9 cm, previously. In addition, there is a small endoleak noted along the anterior aspect of the proximal aneurysm, sagi ttal series 18 image 86 and axial series 7 image 96. Bones: Moderate spinal change lower lumbar spine with facet arthropathy and degenerative disc disease. Grade 1 anterolisthesis L5-S1. IMPRESSION: 1. INTERVAL PLACEMENT OF ABDOMINAL AORTOBIILIAC STENT GRAFT. [place] SAC SLIGHTLY LARGER AT 5.4 X 5.2 CM (VERSUS 5.0 X 4.9 CM ON 12/04/2022). 2. ENDOLEAK ALONG THE ANTERIOR ASPECT OF THE PROXIMAL ANEURYSM. THE TYPE OF ENDOLEAK IS UNCLEAR. POSS IBLY AT THE JUNCTION OF MODULAR COMPONENTS. 3. NO EXCRETION OF CONTRAST ON THE DELAYED SCAN. CORRELATE WITH BUN/CREATININE TO EXCLUDE ACUTE KIDNE Y INJURY. 4. SIGMOID DIVERTICULOSIS WITHOUT ACUTE DIVERTICULITIS. MODERATE STOOL IN THE RIGHT SIDE OF THE COLON .
== END | disposition home or self-care (01) ==
LOC: RADCTMAIN 07:44
PROVIDERS: ATTEND Surgery
DX: K57.30 Diverticulosis of large intestine without perforation or abscess without bleeding (principal); R19.5 Other fecal abnormalities; Z95.820 Peripheral vascular angioplasty status with implants and grafts
CPT/HCPCS: 82565; 84520; 36415; 74174; Q9967

== ENCOUNTER → 2023-06-01 | Outpatient (CLI) | payer MEDICARE ==
[2023-06-01 11:06] LABS: African American GFR (CKD) >90 (>60 ml/min/1.73 sqM); Blood Urea Nitrogen 22 mg/dL (7-17); Non-African American GFR(CKD) 89 (>60 ml/min/1.73 sqM)
--- NOTE | 2023-06-01 12:35 | CT ---
EXAMINATION: CTA ABDOMEN AND PELVIS WITHOUT AND WITH IV CONTRAST DATE OF EXAMINATION: 06/01/2023. COMPARISON: 02/13/2023. INDICATION: Z95.820 PERIPHERAL VASCULAR ANGIOPLASTY STATUS W I PROCEDURE: Axial CT of the abdomen and pelvis was performed without and with contrast and sagittal a nd coronal reformatted images were performed. 100 mL of Isovue-[address] dose lowering techniques were used, to include: automated exposure control, adjustment for patient size, a nd/or use of iterative reconstruction. FINDINGS: LOWER CHEST : The visualized lung bases are clear. There are no pleural or pericardial effusions. ABDOMEN: Liver and Biliary system: Normal. Adrenal glands: Normal. Kidneys and ureters: Normal. Spleen: Normal. Pancreas: Normal. Gallbladder: Normal. Lymph nodes, Peritoneum and mesentery: There is no mesenteric or retroperitoneal lymphadenopathy. Gastrointestinal tract: There are no dilated loops of bowel or free intraperitoneal air. There is no evidence of appendicitis. There is mild descending colonic and sigmoid colonic diverticulosis wit hout evidence of diverticulitis. Aorta/IVC: There is abdominal aortic endograft with biiliac components. The abdominal aortic aneury sm sac measures up to 5.2 x 5.1 cm in diameter which is very similar to the previous examination. The re is some contrast seen along the posterior aspect of the aneurysm sac which is compatible with a ty pe II endoleak. IVC normal. Abdominal wall: Normal. PELVIS: Fluid: There is no free fluid in the pelvis. Lymph Nodes: There is no pelvic or inguinal lymphadenopathy.. Urinary bladder: Normal. BONES: There are no osseous destructive lesions.. ADDITIONAL SIGNIFICANT FINDINGS: None. IMPRESSION: 1. Abdominal aortic endograft with aneurysm sac not significantly changed in size, however there is a type II endoleak present. 2. Diverticulosis without evidence of diverticulitis. 3. No additional acute findings.
== END | disposition home or self-care (01) ==
LOC: RADCTMAIN 10:25
PROVIDERS: ATTEND Surgery
DX: K57.90 Diverticulosis of intestine, part unspecified, without perforation or abscess without bleeding (principal); I71.40 Abdominal aortic aneurysm, without rupture, unspecified; I97.89 Other postprocedural complications and disorders of the circulatory system, not elsewhere classified; Z95.820 Peripheral vascular angioplasty status with implants and grafts
CPT/HCPCS: 82565; 84520; 36415; 74174; Q9967

== ENCOUNTER 2024-01-04 06:13 | Day surgery (SDC) | payer MEDICARE ==
[~2024-01-04 06:13] MED LIST changes: -DEXAMETHASONE SOD PHOSPHATE 4 MG/ML 1 ML VIAL IV ONE; -ONDANSETRON 4 MG/2 ML VIAL IVP ONE; +Pre Op ABX Message 1 EACH MISC MISCELLANE ONE; -SODIUM CHLORIDE 0.9% 1,000 ML in EMPTY BAG 1 BAG IV ONE; -ceFAZolin 1 GM in SODIUM CHLORIDE 0.9% 250 ML IRRIGATION PRN
[2024-01-04] MEDS ORDERED: HYDROmorphone 0.5 MG/0.5 ML SYRINGE IVP PRN (06:42)
[2024-01-04] MEDS ORDERED: LIDOCAINE 1% (10MG/ML) FOR IV START INTRADERMA PRN (06:42)
[2024-01-04] MEDS ORDERED: MIDAZOLAM 2 MG/2 ML VIAL IV PRN (06:42)
[2024-01-04] MEDS ORDERED: fentaNYL (PF) 50 MCG/ML 2 ML AMP IVP PRN (06:42)
[2024-01-04] MEDS: LACTATED RINGERS 1,000 ML IV SCH (07:24)
[2024-01-04] MEDS: DEXAMETHASONE SOD PHOSPHATE 4 MG/ML 1 ML VIAL IV ONE (07:24)
[2024-01-04] MEDS: ONDANSETRON 4 MG/2 ML VIAL IVP ONE (07:24)
[2024-01-04] MEDS ORDERED: GLYCOPYRROLATE 0.2 MG/ML 2 ML VIAL ONE (07:27)
[2024-01-04] MEDS ORDERED: MIDAZOLAM 2 MG/2 ML VIAL ONE (07:27)
[2024-01-04] MEDS ORDERED: ePHEDrine 50 MG/ML 1 ML VIAL ONE (07:27)
[2024-01-04] MEDS ORDERED: KETAMINE HCL IN 0.9 % NACL 50 MG/5 ML SYRINGE ONE (07:27)
[2024-01-04] MEDS ORDERED: PHENYLEPHRINE-0.9% NACL SYG 1,000 MCG/10 ML SYRINGE ONE (07:27)
[2024-01-04] MEDS ORDERED: ceFAZolin 1 GM/50 ML BAG (PMX) ONE (07:27)
[2024-01-04] MEDS ORDERED: fentaNYL (PF) 50 MCG/ML 2 ML AMP ONE (07:27)
[2024-01-04] MEDS ORDERED: LIDOCAINE 1% INJ 10MG/ML (20 ML MDV) ONE (07:27)
[2024-01-04] MEDS ORDERED: PROPOFOL 10 MG/ML 20 ML VIAL IV ONE (07:27)
[2024-01-04] MEDS: IV FLUID CONTINUATION 1,000 ML IV ONE (07:28)
[2024-01-04] MEDS: SODIUM CHLORIDE 0.9% 50 ML with ceFAZolin 1,000 MG IV ONE (07:45)
[2024-01-04] MEDS: LIDOCAINE 1% INJ 10MG/ML (20 ML MDV) SQ ONE ×2 (08:05)
[2024-01-04] MEDS: SODIUM CHLORIDE 0.9% 1,000 ML IV ONE (09:08)
[2024-01-04 09:38] VITALS: TEMP 97
--- NOTE | 2024-01-04 09:38 | P.OP ---
Date of Procedure: 01/04/24 Preoperative Diagnosis: Venous insufficiency/varicose veins right lower extremity with secondary symptoms of fatigue/heaviness/discomfort. Postoperative Diagnosis: Same. Procedure(s) Performed: Stab phlebectomy (greater than 20 stabs) varicose veins right lower extremity. Implants: Same. Anesthesia: GETA (Via LMA.) Surgeon: Ed Dominguez Estimated Blood Loss (ml): 20 Urine output (ml): 0 Pathology: none sent Condition: stable Disposition: no change Indications for Procedure: Patient is a 68-year-old female who had presented with a chief complaint of large varicosities of the right lower extremity. These were associated with the symptoms of heaviness/fatigue and pain. She had previously undergone endovenous ablation of the great saphenous vein and stab phlebectomies of the right lower extremity performed at an outside institution. She initially did well however eventually redeveloped varicosities and associated symptoms. Because of her symptoms patient was offered stab phlebectomy. The procedure, risk and benefits were discussed. All questions were answered to patient's satisfaction. Consent form was signed. Operative Findings: Patient was brought the op room placed in the supine position and administered inhalational anesthesia delivered by the department of anesthesiology via laryngeal mask airway. Patient received intravenously administered prophylactic antibiotics in the perioperative phase. Patient's right lower extremity was sterilely prepped and draped in usual manner. The veins had been marked in the preoperative area. Where marked 1% Xylocaine was injected into the subcutaneous tissues. Stab phlebectomy was created through this anesthetized area. Vein was identified grasped elevated and operative view. It was doubly clamped and transected. The vein was mobilized as far proximally and distally as possible and ligated in the excess vein was removed. This was performed at all previously marked spots. Subsequently each wound was closed with 4-0 Monocryl placed in the intradermal position. The leg was then washed and the leg was then wrapped with Kerlix and Maik wrap from the forefoot to the upper thigh area. Patient tolerated the procedure well, awoke without apparent complication was transferred to the recovery area in satisfactory and stable condition. Plan - Discharge Summary Discharge Rx Participant: No New Discharge Prescriptions: No Action Aspirin [Adult Low Dose Aspirin EC] 81 mg PO DAILY Lisinopril-Hctz 10-12.5 mg [Zestoretic 10-12.5] 1 tab PO QAM Rosuvastatin Calcium [Crestor] 5 mg PO QAM Calcium Carbonate/Vitamin D3 [Calcium 600-Vit D3 20 Mcg (800 Iu)] 1 each PO DAILY Albuterol Sulfate [Proair Hfa] 1 - 2 puff INHALATION Q6HR PRN PRN Reason: Shortness Of Breath Fluticasone Propion/Salmeterol [Advair 250-50 Diskus] 1 puff INHALATION BID Discharge Medication List Albuterol Sulfate [Proair Hfa] 1 - 2 puff INHALATION Q6HR PRN 09/07/18 [History] Aspirin [Adult Low Dose Aspirin EC] 81 mg PO DAILY 09/07/18 [History] Calcium Carbonate/Vitamin D3 [Calcium 600-Vit D3 20 Mcg (800 Iu)] 1 each PO DAILY 09/07/18 [History] Lisinopril-Hctz 10-12.5 mg [Zestoretic 10-12.5] 1 tab PO QAM 09/07/18 [History] Rosuvastatin Calcium [Crestor] 5 mg PO QAM 09/07/18 [History] Fluticasone Propion/Salmeterol [Advair 250-50 Diskus] 1 puff INHALATION BID 12/29/23 [History]
[2024-01-04 10:19] VITALS: RESP 20
[2024-01-04 10:52] VITALS: BP 126/68; PULSE 65
== END 2024-01-04 11:25 | disposition home or self-care (01) ==
LOC: OR 06:13
PROVIDERS: ATTEND Surgery
CPT/HCPCS: 84132

== ENCOUNTER 2024-02-26 10:02 | Day surgery (SDC) | payer MEDICARE ==
[2024-02-26] MEDS: IV FLUID CONTINUATION 1,000 ML IV ONE (11:51)
[2024-02-26] MEDS: LACTATED RINGERS 1,000 ML IV SCH (12:02)
[2024-02-26 12:15] VITALS: TEMP 97.8
[2024-02-26] MEDS ORDERED: PROPOFOL 10 MG/ML 20 ML VIAL IV ONE (12:28)
[2024-02-26] MEDS ORDERED: LIDOCAINE 1% INJ 10MG/ML (20 ML MDV) ONE (12:28)
--- NOTE | 2024-02-26 12:46 | P.PCN ---
Date of Procedure: 02/26/24 Procedure(s) Performed: BRIEF HISTORY: Patient is a 68-year-old pleasant white meat scheduled for an elective colonoscopy as a part of evaluation by history of colon polyps. PROCEDURE PERFORMED: Colonoscopy. PREOPERATIVE DIAGNOSIS: History of colon polyps. IV sedation per Anesthesia. PROCEDURE: After informed consent was obtained, the patient, was brought into the endoscopy unit. IV sedation was administered by Anesthesia under continuous monitoring. Digital rectal examination was normal. Initially the Olympus CF-160 flexible video colonoscope was then inserted in the rectum, gradually advanced into the cecum without any difficulty. Careful examination was performed as the scope was gradually being withdrawn. Ileocecal valve and the appendiceal orifice were visualized and appeared normal. Prep was excellent. Mucosa of the cecum, ascending colon, transverse colon, descending colon, sigmoid colon, and rectum appeared normal. Scattered sigmoid diverticulosis. Retroflexion was performed in the rectum and no lesions were seen. The patient tolerated the procedure well. IMPRESSION: Normal-appearing colon from rectum to cecum with no evidence of colorectal neoplasia. Scattered sigmoid diverticulosis. RECOMMENDATIONS: Findings of this examination were discussed with the patient a s well as her family.. Was advised to have repeat screening colonoscopy in 10 years.
[2024-02-26 12:52] VITALS: RESP 16
[2024-02-26 13:13] VITALS: BP 152/75; PULSE 72
== END 2024-02-26 13:24 | disposition home or self-care (01) ==
LOC: ORWHC2ENDO 10:02
PROVIDERS: ATTEND Internal Medicine Gastroenterology
DX: K57.30 Diverticulosis of large intestine without perforation or abscess without bleeding (principal); I25.2 Old myocardial infarction; I10 Essential (primary) hypertension; E78.5 Hyperlipidemia, unspecified; J44.9 Chronic obstructive pulmonary disease, unspecified; M54.50 Low back pain, unspecified; F41.9 Anxiety disorder, unspecified; Z79.82 Long term (current) use of aspirin; Z86.0100 Personal history of colon polyps, unspecified; Z79.899 Other long term (current) drug therapy; Z90.01 Acquired absence of eye
CPT/HCPCS: 45378; J2003; J2704